=== PATIENT | female | born 1955 | race Hispanic/Latino ===

== ENCOUNTER 2023-07-26 06:13 | Day surgery (SDC) | payer OTHER, MEDICARE ==
[2023-07-23 12:35] LABS: BASOPHILS # (AUTO) 0.04 K/uL (0.00-0.20); BASOPHILS % (AUTO) 0.4 % (0.0-5.0); EOSINOPHILS % (AUTO) 1.1 % (0.0-8.0); IMMATURE GRANULOCYTE ABSOLUTE 0.02 K/uL (0-1); LYMPHOCYTES # (AUTO) 2.6 K/uL (1.0-4.8); LYMPHOCYTES % (AUTO) 29.3 % (21.0-51.0); MEAN CORPUSCULAR HGB CONC 32.5 g/dL (32.0-36.0); MEAN CORPUSCULAR VOLUME 86.3 fL (79-99); MONOCYTES # (AUTO) 0.5 K/uL (0.1-1.0); MONOCYTES % (AUTO) 5.2 % (3.0-13.0); NEUTROPHILS # (AUTO) 5.7 K/uL (1.8-7.7); NEUTROPHILS % (AUTO) 63.8 % (40.0-77.0); PLATELET COUNT (AUTO) 232 K/uL (130-400); RED CELL DISTRIBUTION WIDTH 14.6 % (11.0-15.5); WHITE BLOOD COUNT (AUTO) 8.9 K/uL (4.8-10.8)
[2023-07-23 12:43] VITALS: BP 137/69; PULSE 81; RESP 17
[2023-07-23 12:45] LABS: CREATININE 0.9 mg/dL (0.5-1.0); POTASSIUM 5.1 mmol/L (3.5-5.1)
[2023-07-23 12:46] LABS: INR <= 0.93 (0.85-1.15); PROTHROMBIN TIME 10.7 SEC (9.6-11.6)
[2023-07-23 12:47] LABS: PARTIAL THROMBOPLASTIN TIME 24.5 SEC (26.3-35.5)
[2023-07-23 12:59] LABS: B-TYPE NATRIURETIC PEPTIDE 60 pg/mL (0-100)
[2023-07-23 13:41] LABS: ADD UA MICROSCOPIC YES; APPEARANCE,URINE CLOUDY (CLEAR); BILIRUBIN,URINE NEGATIVE (NEGATIVE); COLOR,URINE YELLOW (YELLOW); GLUCOSE, URINE (UA) >=1000 mg/dL (NEGATIVE); KETONES,URINE NEGATIVE (NEGATIVE); LEUKOCYTE ESTERASE ,URINE 500 Leu/uL (NEGATIVE); NITRATE,URINE NEGATIVE (NEGATIVE); OCCULT BLOOD,URINE NEGATIVE (NEGATIVE); PH,URINE 5.5 (5.0-8.0); PROTEIN,URINE NEGATIVE (NEGATIVE); UROBILINOGEN,URINE 0.2 mg/dL (0.2-1.0)
[2023-07-23 13:44] LABS: BACTERIA,URINE Moderate /HPF (None Seen)
[2023-07-26] VITALS (8 sets, daily range): BP systolic 122–163; BP diastolic 62–87; PULSE 79–89; RESP 15–18
[~2023-07-26] VITALS: Ht 162.6 cm; Wt 85.3 kg
[~2023-07-26 06:13] MED LIST: AEC81 PO; CYAN500T9 PO; EMPA1TAB19 PO; FAMO40TA7 PO; INSLAN SQ; LEVO50CA4 PO; LEVO5TAB13 PO; LISI2.5T13 PO; MAGN500C4 PO; ROSU20TA73 PO; SEMA2PEN SQ; VITA1CAP85 PO
[2023-07-26] MEDS: 0.9%NACL 1000ML 1,000 ML IV SCH (06:55)
[2023-07-26] MEDS ORDERED: LIDOCAINE HCL 400MG/20ML VIAL ONE (09:46)
[2023-07-26] MEDS ORDERED: BIVALIRUDIN 250 MG/VIAL IV ONE (09:47)
[2023-07-26] MEDS ORDERED: IOHEXOL-350 75 ML VIAL IV ONE (09:47)
[2023-07-26] MEDS ORDERED: SODIUM BICARB 50MEQ 50ML VIAL 50 ML ONE (09:47)
[2023-07-26] MEDS ORDERED: NICARDIPINE 25MG INJ IV ONE (09:47)
[2023-07-26] MEDS ORDERED: IOHEXOL 350 MG/ML 100ML INFUS..BTL IV ONE (09:47)
[2023-07-26] MEDS ORDERED: HEPARIN 10,000 UNIT/10ML (1,000 UNIT/ML) VIAL ONE (09:47)
[2023-07-26] MEDS ORDERED: NITROGLYCERIN 50MG VIAL ONE (09:48)
[2023-07-26] MEDS ORDERED: FENTANYL CITRATE PF 50 MCG/1 ML 2ML VIAL ONE (12:42)
[2023-07-26] MEDS ORDERED: MIDAZOLAM HCL 1 MG/ML 2ML VIAL ONE (12:43)
[2023-07-26] MEDS ORDERED: ISOS30TA92 PO (14:35)
[2023-07-26] MEDS ORDERED: 0.9% NACL 500ML IV.SOLN 500 ML IV SCH (15:00)
[2023-07-26] MEDS: ACETAMINOPHEN 325 MG TAB PO ONE (17:09)
[2023-07-27] MEDS ORDERED: ISOSORBIDE MONO 30MG SR TAB PO SCH (09:00)
== END 2023-07-26 18:05 | disposition home or self-care (01) ==
LOC: DAH 06:13
PROVIDERS: ATTEND Internal Medicine Cardiovascular Disease
DX: I25.119 Atherosclerotic heart disease of native coronary artery with unspecified angina pectoris (principal); I10 Essential (primary) hypertension; E03.9 Hypothyroidism, unspecified; J45.909 Unspecified asthma, uncomplicated; E11.319 Type 2 diabetes mellitus with unspecified diabetic retinopathy without macular edema; Z79.82 Long term (current) use of aspirin; Z79.890 Hormone replacement therapy; Z86.73 Personal history of transient ischemic attack (TIA), and cerebral infarction without residual deficits; Z90.49 Acquired absence of other specified parts of digestive tract; Z98.42 Cataract extraction status, left eye; Z82.49 Family history of ischemic heart disease and other diseases of the circulatory system; Z82.3 Family history of stroke; Z79.01 Long term (current) use of anticoagulants; Z79.899 Other long term (current) drug therapy
CPT/HCPCS: 80048; 83880; 85025; 85610; 85730; 87088; 81001; 36415; 71045; 93005; 93458; 93571; 82948 ×2; C1769 ×2; C1887; C1894; A4649; J3010; J3490 ×4; J7030; J1644 ×2; J2250; Q9967 ×2; A4215; A4335; A4222; A4221; A4663; A4216; A4606; Q9965 ×2; A4223 ×3; A4554; 99156; 99157; J0583

== ENCOUNTER → 2024-01-26 | Outpatient (CLI) | payer OTHER, MEDICARE ==
[~2024-01-26] VITALS: Ht 162.6 cm; Wt 79.5 kg
[~2024-01-26] MED LIST changes: +APIX5TAB PO; +CEFD300C3 PO; +CHOL100053 PO; +CYAN250010 PO; +ISOS30TA92 PO; +KETO5DRO40 OU; +NITR0.4T50 SL; -ROSU20TA73 PO; +ROSU20TA98 PO; +TIRZ12.5 SQ
[2024-01-26 13:09] LABS: CREATININE 0.8 mg/dL (0.5-1.0); POTASSIUM 4.5 mmol/L (3.5-5.1)
[2024-01-26 13:20] VITALS: BP 111/61; PULSE 90; RESP 18; TEMP 97.3
[2024-01-26 13:44] LABS: INR 0.99 (0.85-1.15); PROTHROMBIN TIME 10.7 SEC (9.6-11.6)
[2024-01-26 13:45] LABS: PARTIAL THROMBOPLASTIN TIME 27.5 SEC (26.3-35.5)
--- NOTE | 2024-01-26 14:17 | EKG ---
[facility] Test Date: 2024-01-26 Test Time: 13:26:38 Pat Name: RABIA NAIR Department: [facility] Room: Gender: F Assistant Buyer: [id number] : 1955 Requested By: CYNTHIA ANDERSON Order Number: [id number] Reading MD: Shar Campbell Measurements Intervals [place] Rate: 79 P: 42 [place]: 118 QRS: 20 QRSD: 85 T: 49 QT: 381 QTc: 436 Interpretive Statements Sinus rhythm Compared to ECG 07/28/2023 17:06:54 No significant changes Electronically Signed On 01-30-2024 17:16:23 STUDENT SUPPORT ADVISOR by Shar Campbell Please click the below link to view image of tracing.
[2024-01-26 16:13] LABS: BASOPHILS # (AUTO) 0.04 K/uL (0.00-0.20); BASOPHILS % (AUTO) 0.5 % (0.0-5.0); EOSINOPHILS % (AUTO) 2.3 % (0.0-8.0); HEMATOCRIT 44.8 % (36-48); IMMATURE GRANULOCYTE ABSOLUTE 0.02 K/uL (0-1); LYMPHOCYTES # (AUTO) 2.8 K/uL (1.0-4.8); LYMPHOCYTES % (AUTO) 32.7 % (21.0-51.0); MEAN CORPUSCULAR HEMOGLOBIN 28.3 pg (27.0-33.0); MEAN CORPUSCULAR HGB CONC 31.3 g/dL (32.0-36.0); MEAN CORPUSCULAR VOLUME 90.5 fL (79-99); MONOCYTES # (AUTO) 0.6 K/uL (0.1-1.0); MONOCYTES % (AUTO) 6.3 % (3.0-13.0); PLATELET COUNT (AUTO) 216 K/uL (130-400); RED BLOOD CELL COUNT(AUTO) 4.95 MIL/uL (4.00-5.50); RED CELL DISTRIBUTION WIDTH 13.8 % (11.0-15.5); WHITE BLOOD COUNT (AUTO) 8.7 K/uL (4.8-10.8)
== END | disposition home or self-care (01) ==
LOC: DAH 10:00 → EDSTATUS 12:00
PROVIDERS: ATTEND Student in an Organized Health Care Education/Training Program
DX: Z01.818 Encounter for other preprocedural examination (principal); I48.0 Paroxysmal atrial fibrillation
CPT/HCPCS: 36415; 80048; 85025; 85610; 85730; 93005